=== PATIENT | female | born 1965 ===

== ENCOUNTER 2017-10-10 09:12 | Observation (INO) | payer OTHER ==
[2017-10-10] MEDS ORDERED: Iohexol 240 (50 ml) PO ONE (09:52)
[2017-10-10] MEDS ORDERED: Sodium Chloride 0.9% 1,000 ML IV STA (09:56)
[2017-10-10] MEDS ORDERED: Iohexol 240 (50 ml) ONE (10:01)
[2017-10-10 10:23] LABS: BASO # 0.1 K/uL (0.0-0.2); BASO % 1.2 % (0.0-2.0); EOS # 0.1 K/uL (0.0-0.7); EOS % 1.6 % (0.0-4.0); HEMOGLOBIN 12.7 g/dL (12.0-16.0); LYMPH # 2.3 K/uL (1.0-4.3); LYMPH % 34.7 % (20.0-40.0); MEAN CELL VOLUME 91.9 fl (81.0-99.0); MEAN CORPUSCULAR HEMOGLOBIN 31.5 pg (27.0-31.0); MEAN CORPUSCULAR HGB CONC 34.3 g/dL (33.0-37.0); MEAN PLATELET VOLUME 7.7 fl (7.2-11.7); MONO # 0.4 K/uL (0.0-0.8); MONO % 5.5 % (0.0-10.0); NEUT # 3.7 K/uL (1.8-7.0); NRBC % 0.1 % (0.0-0.0); RBC 4.02 Mil/uL (3.80-5.20); RED CELL DISTRIBUTION WIDTH 14.2 % (11.5-14.5); WHITE BLOOD COUNT 6.5 K/uL (4.8-10.8)
[2017-10-10 10:41] LABS: ALB/GLOB RATIO 1.4 (1.0-2.1); ALBUMIN 4.4 g/dL (3.5-5.0); ALT/SGPT 44 U/L (9-52); AST/SGOT 37 U/L (14-36); BLOOD UREA NITROGEN 16 mg/dl (7-17); CALCIUM 10.7 mg/dL (8.4-10.2); GFR AFRICAN-AMERICAN > 60; GFR NON-AFRICAN AMERICAN > 60; LIPASE 248 U/L (23-300)
--- NOTE | 2017-10-10 11:04 | ED PDOC ---
HPI: Abdomen Time Seen by Provider: 10/10/17 09:34 Chief Complaint (Nursing): Abdominal Pain Chief Complaint (Provider): Abdominal pain History Per: Patient History/Exam Limitations: no limitations Onset/Duration Of Symptoms: Days (x2) Current Symptoms Are (Timing): Still Present Location Of Pain/Discomfort: RLQ, Epigastric Quality Of Discomfort: "Pain" Associated Symptoms: Nausea, Loss Of Appetite, Constipation. denies: Fever, Vomiting, Diarrhea, Urinary Symptoms Exacerbating Factors: Food (eating or drinking) Additional Complaint(s): Cintia Coronel is a 51 year old female, with a past medical history of gastritis, who presents to the emergency department complaining of a constant right sided abdominal pain associated with decreased appetite and nausea onset for x2 days. Patient also reports constipation ongoing for x3 days. Patient states pain was initially epigastric but has slowly moved to her right lower side, and is worst with drinking or eating. She denies any fever, chills, urinary symptoms, vomiting or diarrhea. No further medical complaints. PMD: None provided. Past Medical History Reviewed: Historical Data, Nursing Documentation, Vital Signs Vital Signs: Last Vital Signs Temp 98.5 F 10/10/17 09:23 Pulse 78 10/10/17 09:23 Resp 20 10/10/17 09:23 BP 127/77 10/10/17 09:23 Pulse Ox 98 10/10/17 14:41 - Medical History PMH: Gastritis, Gall Bladder Disease - Surgical History Surgical History: - Family History Family History: States: Unknown Family Hx - Social History Current smoker - smoking cessation education provided: No Alcohol: None Drugs: Denies - Immunization History Hx Tetanus Toxoid Vaccination: No Hx Influenza Vaccination: No Hx Pneumococcal Vaccination: No - Home Medications Home Medications: Ambulatory Orders Medication Instructions Recorded No Known Home Med 10/10/17 - Allergies Allergies/Adverse Reactions: Allergies Allergy/AdvReac Type Severity Reaction Status Date / Time No Known Allergies Allergy Verified 06/19/17 15:46 Review of Systems ROS Statement: Except As Marked, All Systems Reviewed And Found Negative Constitutional: Negative for: Fever, Chills Gastrointestinal: Positive for: Nausea, Abdominal Pain (right sided), Constipation, Other (decreased appetite). Negative for: Vomiting, Diarrhea Genitourinary Female: Negative for: Dysuria, Frequency, Incontinence Physical Exam - Reviewed Nursing Documentation Reviewed: Yes Vital Signs Reviewed: Yes - Physical Exam Appears: Positive for: Non-toxic, No Acute Distress Head Exam: Positive for: ATRAUMATIC, NORMAL INSPECTION, NORMOCEPHALIC Skin: Positive for: Normal Color, Warm, Dry Eye Exam: Positive for: Normal appearance, EOMI, PERRL ENT: Positive for: Normal ENT Inspection Neck: Positive for: Painless ROM, Supple Cardiovascular/Chest: Positive for: Regular Rate, Rhythm. Negative for: Murmur Respiratory: Positive for: Normal Breath Sounds. Negative for: Respiratory Distress Gastrointestinal/Abdominal: Positive for: Tenderness (significant RLQ tenderness , mild in epigastric area.) Back: Positive for: Normal Inspection. Negative for: L CVA Tenderness, R CVA Tenderness, Vertebral Tenderness Extremity: Positive for: Normal ROM. Negative for: Tenderness, Deformity, Swelling Neurologic/Psych: Positive for: Alert, Oriented (x3). Negative for: Motor/ Sensory Deficits - Laboratory Results Result Diagrams: 10/10/17 10:18 10/10/17 10:18 - ECG O2 Sat by Pulse Oximetry: 98 (RA) Pulse Ox Interpretation: Normal Medical Decision Making Medical Decision Making: Initial Impression: abdominal pain. Differential includes but not limited to acute appendicitis, acute cholecystitis, and UTI Initial Plan: --Abd pelvis PO & IV contrast [CT] --CMP --Lipase --Urine dipstick --Urine --Dilaudid 0.5 mg IVP --Omnipaque 240 50 ml PO --Sodium Chloride 1,000 ml IV 1,000 mls/hr --Zofran Inj 4 mg IV --Urine culture --reevaluation 13:57 Abdomen & Pelvis CT FINDINGS: LOWER THORAX: Lingular calcified granuloma. Heart size normal. LIVER: Mild hepatic steatosis. No gross lesion or ductal dilatation. GALLBLADDER AND BILE DUCTS: Unremarkable. PANCREAS: Unremarkable. No gross lesion or ductal dilatation. SPLEEN: Unremarkable. ADRENALS: Unremarkable. No mass. KIDNEYS AND URETERS: Unremarkable. No hydronephrosis. No solid mass. VASCULATURE: Unremarkable. No aortic aneurysm. BOWEL: Unremarkable. No obstruction. No gross mural thickening. APPENDIX: Thick-walled appendiceal tip in the posterior abdominal midline without significant periappendiceal inflammatory change. Remainder of appendix is normal in caliber and fills with enteric contrast. PERITONEUM: Small fat containing umbilical hernia. No free fluid. No free air. LYMPH NODES: Unremarkable. No enlarged lymph nodes. BLADDER: Markedly distended. REPRODUCTIVE: Unremarkable. BONES: No acute fracture. OTHER FINDINGS: None. IMPRESSION: Thick-walled appendiceal tip without significant periappendiceal inflammatory change. Tip appendicitis cannot be excluded. Clinical correlation is recommend. --Discussed CT findings with Dr. Matthews, surgeon telecom sales consultant. Patient will be seen by surgical specialist in ER and will discuss case with Dr. Matthews for further management 15:25 --Dr. Matthews recommends admitting the patient for observation of hospitalist. --As per Dr. Matthews, patient will be admitted to hospitalistDr. Andrews. Scribe Attestation: Documented by Jayesh Lentz, acting as a scribe for Soy Middleton MD Provider Scribe Attestation: All medical record entries made by the Scribe were at my direction and personally dictated by me. I have reviewed the chart and agree that the record accurately reflects my personal performance of the history, physical exam, medical decision making, and the department course for this patient. I have also personally directed, reviewed, and agree with the discharge instructions and disposition. Disposition - Disposition Forms: [employer] (Andorran)
[2017-10-10] MEDS ORDERED: Sodium Chloride 0.9% 50 ML IV ONE (12:39)
[2017-10-10] MEDS ORDERED: Iohexol 300 100 ML IJ ONE (12:39)
--- NOTE | 2017-10-10 13:59 | CT ---
PROCEDURE: CT Abdomen and Pelvis with contrast HISTORY: RLQ pain COMPARISON: None. TECHNIQUE: Contrast dose: 90 mL Omnipaque 300 Radiation dose: Total exam DLP = 674.4 mGy-cm. This CT exam was performed using one or more of the following dose reduction techniques: Automated exposure control, adjustment of the mA and/or kV according to patient size, and/or use of iterative reconstruction technique. FINDINGS: LOWER THORAX: Lingular calcified granuloma. Heart size normal. LIVER: Mild hepatic steatosis. No gross lesion or ductal dilatation. GALLBLADDER AND BILE DUCTS: Unremarkable. PANCREAS: Unremarkable. No gross lesion or ductal dilatation. SPLEEN: Unremarkable. ADRENALS: Unremarkable. No mass. KIDNEYS AND URETERS: Unremarkable. No hydronephrosis. No solid mass. VASCULATURE: Unremarkable. No aortic aneurysm. BOWEL: Unremarkable. No obstruction. No gross mural thickening. APPENDIX: Thick-walled appendiceal tip in the posterior abdominal midline without significant periappendiceal inflammatory change. Remainder of appendix is normal in caliber and fills with enteric contrast. PERITONEUM: Small fat containing umbilical hernia. No free fluid. No free air. LYMPH NODES: Unremarkable. No enlarged lymph nodes. BLADDER: Markedly distended. REPRODUCTIVE: Unremarkable. BONES: No acute fracture. OTHER FINDINGS: None. IMPRESSION: Thick-walled appendiceal tip without significant periappendiceal inflammatory change. Tip appendicitis cannot be excluded. Clinical correlation is recommend. Findings conveyed to Dr. Middleton by Dr. Gutierrez at 1:55 p.m. on 10/10/2017.
--- NOTE | 2017-10-10 17:42 | CP.PCM.CON ---
History of Present Illness - History of Present Illness History of Present Illness: General Surgery: Dr Matthews Pt is a 51F with history of gastritis who presents to ED for RLQ pain x 2 days. Pt reports pain started monday afternoon and has been persistent 7/10 in RLQ. Now 2/10 after medication. Pt reports single episode of yellow emesis, however 10-12 episodes of watery diarrhea. Pt reports cramping sensation throughout entire abdomen. Denies fevers, chills, sob or chest pain. also complains of epigastric pain. Has been able to tolerate diet though she has not eaten much beyond lemon juice that she thought would help. CT reviewed with attending: there is contrast and air in appendix with no surrounding inflammation. PMH: gastritis PSH: Review of Systems - Review of Systems All systems: reviewed and no additional remarkable complaints except (as per hpi ) Past Patient History - Infectious Disease Hx of Infectious Diseases: None - Past Social History Alcohol: None Drugs: Denies - GASTROINTESTINAL Hx Gall Bladder Disease: Yes Hx Gastritis: Yes - PSYCHIATRIC Hx Substance Use: No - SURGICAL HISTORY Hx Surgeries: Yes Hx Section: Yes (x1) - ANESTHESIA Hx Anesthesia: Yes Hx Anesthesia Reactions: No Hx Malignant Hyperthermia: No Meds Allergies/Adverse Reactions: Allergies Allergy/AdvReac Type Severity Reaction Status Date / Time No Known Allergies Allergy Verified 06/19/17 15:46 Physical Exam - Constitutional Appears: Non-toxic, No Acute Distress - Head Exam Head Exam: NORMAL INSPECTION - ENT Exam ENT Exam: Mucous Membranes Moist - Respiratory Exam Respiratory Exam: absent: Accessory Muscle Use, Respiratory Distress - Cardiovascular Exam Cardiovascular Exam: REGULAR RHYTHM. absent: Tachycardia - GI/Abdominal Exam GI & Abdominal Exam: Soft, Tenderness (RLQ and LLQ and epigastric but minimal). absent: Distended, Firm, Guarding, Hernia, Rigid - Neurological Exam Neurological exam: Alert, Oriented x3 - Psychiatric Exam Psychiatric exam: Normal Affect, Normal Mood Results - Vital Signs Recent Vital Signs: Last Vital Signs Temp 97.9 F 10/10/17 17:20 Pulse 61 10/10/17 17:20 Resp 18 10/10/17 17:20 BP 131/74 10/10/17 17:20 Pulse Ox 100 10/10/17 17:20 - Labs Result Diagrams: 10/10/17 10:18 10/10/17 10:18 Labs: Laboratory Results - last 24 hr 10/10/17 10/10/17 10:18 10:18 WBC 6.5 RBC 4.02 Hgb 12.7 Hct 37.0 MCV 91.9 MCH 31.5 H MCHC 34.3 RDW 14.2 Plt Count 247 MPV 7.7 Neut % (Auto) 57.0 Lymph % (Auto) 34.7 [place] % (Auto) 5.5 Eos % (Auto) 1.6 Baso % (Auto) 1.2 Neut # (Auto) 3.7 Lymph # (Auto) 2.3 [place] # (Auto) 0.4 Eos # (Auto) 0.1 Baso # (Auto) 0.1 Sodium 144 Potassium 3.9 Chloride 104 Carbon Dioxide 29 Anion Gap 15 BUN 16 Creatinine 0.7 Est GFR ( Amer) > 60 Est GFR (Non-Af Amer) > 60 Random Glucose 136 H Calcium 10.7 H Total Bilirubin 0.3 AST 37 H ALT 44 Alkaline Phosphatase 82 Total Protein 7.7 Albumin 4.4 Globulin 3.3 Albumin/Globulin Ratio 1.4 Lipase 248 Assessment & Plan - Assessment and Plan (Free Text) Assessment: 51F with abdominal pain; r/o appendicits Plan: unlikely appendicitis. likely gastroenteritis d/w attending; recommended d/c with return to ED if worsens vs admission and observation. Pt elected for observation monitor for leukocytosis, fevers, or worsening pain please call surgical team if pt condition changes d/w Dr Byron Carr, PGY3
[2017-10-10] MEDS: Sodium Chloride 0.9% 1,000 ML IV SCH (18:16)
[2017-10-10 18:38] LABS: SQUAMOUS EPITHIAL 15 /hpf (0-5); URINE BACTERIA RARE (<OCC); URINE BILIRUBIN NEGATIVE (NEGATIVE); URINE BLOOD SMALL (NEGATIVE); URINE CLARITY CLOUDY (Clear); URINE COLOR YELLOW (YELLOW); URINE GLUCOSE (UA) NEG (Normal); URINE LEUKOCYTE ESTERASE LARGE Leu/uL (Negative); URINE NITRATE NEGATIVE (NEGATIVE); URINE PROTEIN NEGATIVE (NEGATIVE); URINE UROBILINOGEN 0.2-1.0 mg/dL (0.2-1.0)
--- NOTE | 2017-10-10 20:11 | CP.PCM.HP ---
History of Present Illness - History of Present Illness History of Present Illness: 51 yo female with no significant PMH came in complaining of RLQ and epigastric pain since 2 days ago associated with multiple bouts of diarrhea. Denied fever or chills. Present on Admission - Present on Admission Any Indicators Present on Admission: No History of DVT/PE: No History of Uncontrolled Diabetes: No Urinary Catheter: No Decubitus Ulcer Present: No Review of Systems - Review of Systems All systems: reviewed and no additional remarkable complaints except (aside from those mentioned above 12 point system review were negative by me) Past Patient History - Infectious Disease Hx of Infectious Diseases: None - Tetanus Immunizations Tetanus Immunization: Unknown - Past Medical History & Family History Past Medical History?: Yes - Past Social History Smoking Status: Never Smoked Alcohol: None Drugs: Denies - CARDIAC Hx Cardiac Disorders: No - PULMONARY Hx Respiratory Disorders: No - NEUROLOGICAL Hx Neurological Disorder: No - HEENT Hx HEENT Problems: No - RENAL Hx Chronic Kidney Disease: No - ENDOCRINE/METABOLIC Hx Endocrine Disorders: No - HEMATOLOGICAL/ONCOLOGICAL Hx Blood Disorders: No - INTEGUMENTARY Hx Dermatological Problems: No - MUSCULOSKELETAL/RHEUMATOLOGICAL Hx Musculoskeletal Disorders: No - GASTROINTESTINAL Hx Gall Bladder Disease: Yes Hx Gastritis: Yes - GENITOURINARY/GYNECOLOGICAL Hx Genitourinary Disorders: No - PSYCHIATRIC Hx Psychophysiologic Disorder: No - SURGICAL HISTORY Hx Surgeries: Yes Hx Section: Yes (x1) - ANESTHESIA Hx Anesthesia: Yes Hx Anesthesia Reactions: No Hx Malignant Hyperthermia: No Meds Allergies/Adverse Reactions: Allergies Allergy/AdvReac Type Severity Reaction Status Date / Time No Known Allergies Allergy Verified 06/19/17 15:46 Physical Exam - Constitutional Appears: No Acute Distress - Head Exam Head Exam: ATRAUMATIC - Eye Exam Eye Exam: absent: Scleral icterus - ENT Exam ENT Exam: Mucous Membranes Moist - Neck Exam Neck exam: Negative for: Meningismus - Respiratory Exam Respiratory Exam: absent: Rhonchi, Wheezes, Respiratory Distress - Cardiovascular Exam Cardiovascular Exam: REGULAR RHYTHM, +S1, +S2 - GI/Abdominal Exam GI & Abdominal Exam: Soft, Tenderness (tenderness on RLQ) - Rectal Exam Rectal Exam: Deferred - Extremities Exam Extremities exam: Negative for: calf tenderness - Back Exam Back exam: absent: tenderness - Neurological Exam Neurological exam: Alert, Oriented x3 - Psychiatric Exam Psychiatric exam: Normal Affect - Skin Skin Exam: Dry, Intact Results - Vital Signs Recent Vital Signs: Last Vital Signs Temp 98.2 F 10/10/17 19:00 Pulse 59 L 10/10/17 19:00 Resp 18 10/10/17 19:00 BP 116/72 10/10/17 19:00 Pulse Ox 100 10/10/17 17:20 - Labs Result Diagrams: 10/10/17 10:18 10/10/17 10:18 Labs: Laboratory Results - last 24 hr 10/10/17 10/10/17 10/10/17 10:18 10:18 17:14 WBC 6.5 RBC 4.02 Hgb 12.7 Hct 37.0 MCV 91.9 MCH 31.5 H MCHC 34.3 RDW 14.2 Plt Count 247 MPV 7.7 Neut % (Auto) 57.0 Lymph % (Auto) 34.7 [place] % (Auto) 5.5 Eos % (Auto) 1.6 Baso % (Auto) 1.2 Neut # (Auto) 3.7 Lymph # (Auto) 2.3 [place] # (Auto) 0.4 Eos # (Auto) 0.1 Baso # (Auto) 0.1 Sodium 144 Potassium 3.9 Chloride 104 Carbon Dioxide 29 Anion Gap 15 BUN 16 Creatinine 0.7 Est GFR ( Amer) > 60 Est GFR (Non-Af Amer) > 60 Random Glucose 136 H Calcium 10.7 H Total Bilirubin 0.3 AST 37 H ALT 44 Alkaline Phosphatase 82 Total Protein 7.7 Albumin 4.4 Globulin 3.3 Albumin/Globulin Ratio 1.4 Lipase 248 Urine Color Yellow Urine Clarity Cloudy Urine pH 6.0 Ur Specific [place] 1.012 Urine Protein Negative Urine Glucose (UA) Neg Urine Ketones Negative Urine Blood Small Urine Nitrate Negative Urine Bilirubin Negative Urine Urobilinogen 0.2-1.0 Ur Leukocyte Esterase Large Urine RBC (Auto) 12 H Urine Microscopic WBC 5 Ur Squamous Epith Cells 15 H Urine Bacteria Rare Assessment & Plan - Assessment and Plan (Free Text) Assessment: 51 yo female with no significant PMH came in complaining of RLQ and epigastric pain since 2 days ago associated with multiple bouts of diarrhea. Denied fever or chills. 1. Acute Appendicitis patient denied history of cardiac symptom: no SOB, no chest pain able to do his ADL patient medically cleared for surgery Zosyn 3.375 gm IV q 6hrs
[2017-10-11 00:19] VITALS: O2SAT 98
[2017-10-11] MEDS: Sodium Chloride 0.9% 1,000 ML IV SCH ×3 (03:00→10:02)
[2017-10-11 06:38] LABS: BASO % 0.6 % (0.0-2.0); EOS # 0.1 K/uL (0.0-0.7); HEMOGLOBIN 12.1 g/dL (12.0-16.0); LYMPH # 2.7 K/uL (1.0-4.3); LYMPH % 43.5 % (20.0-40.0); MEAN CORPUSCULAR HEMOGLOBIN 31.1 pg (27.0-31.0); MEAN CORPUSCULAR HGB CONC 33.4 g/dL (33.0-37.0); MEAN PLATELET VOLUME 8.1 fl (7.2-11.7); MONO # 0.5 K/uL (0.0-0.8); MONO % 7.6 % (0.0-10.0); NEUT # 2.8 K/uL (1.8-7.0); NEUT % 46.3 % (50.0-75.0); NRBC % 0.1 % (0.0-0.0); RBC 3.9 Mil/uL (3.80-5.20); RED CELL DISTRIBUTION WIDTH 14.6 % (11.5-14.5); WHITE BLOOD COUNT 6.1 K/uL (4.8-10.8)
[2017-10-11 06:50] LABS: BLOOD UREA NITROGEN 16 mg/dl (7-17); CALCIUM 10.3 mg/dL (8.4-10.2); GFR AFRICAN-AMERICAN > 60; GFR NON-AFRICAN AMERICAN > 60
[2017-10-11 07:45] VITALS: BP 110/74; PULSE 68; RESP 19; TEMP 97.7
--- NOTE | 2017-10-11 09:32 | CP.PCM.PN ---
Subjective - Date & Time of Evaluation Date of Evaluation: 10/11/17 Time of Evaluation: 09:30 - Subjective Subjective: General Surgery Progress Note - Dr. Matthews 51 y/o female seen and examined at bedside. Says she feels overall a bit better today. Reports that she ate dinner last night and had mild lower abdominal pain afterwards. She says the pain medication helped to alleviate her discomfort. Denies N/V. States she has very little pain at rest but it is tender to touch at the lower right abdomen. Admits to normal bowel movements; denies D/C. States she has not had anything to eat or drink today as she is worried it will cause an upset stomach. Objective - Vital Signs/Intake and Output Vital Signs (last 24 hours): Temp Pulse Resp BP Pulse Ox 97.7 F 68 19 110/74 98 10/11/17 07:44 10/11/17 07:44 10/11/17 07:44 10/11/17 07:44 10/11/17 07:44 - Medications Medications: Current Medications Hydromorphone HCl (Dilaudid) 0.5 mg IVP Q3H PRN PRN Reason: Pain, Mild (1-3) Last Admin: 10/10/17 20:12 Dose: 0.5 mg Sodium Chloride (Sodium Chloride 0.9%) 1,000 mls @ 120 mls/hr IV .Q8H20M QUIN Stop: 10/11/17 17:44 Last Admin: 10/11/17 05:14 Dose: 120 mls/hr Pantoprazole Sodium (Protonix Inj) 40 mg IVP DAILY QUIN - Labs Labs: 10/11/17 05:25 10/11/17 05:25 - Constitutional Appears: Well, Non-toxic, No Acute Distress - GI/Abdominal Exam GI & Abdominal Exam: Soft, Tenderness, Normal Bowel Sounds. absent: Distended Additional comments: mild RLQ tenderness on deep palpation - Neurological Exam Neurological Exam: Alert, Awake, Oriented x3 - Psychiatric Exam Psychiatric exam: Normal Affect, Normal Mood - Skin Skin Exam: Dry, Intact, Normal Color Assessment and Plan - Assessment and Plan (Free Text) Assessment: 51 y/o female with mild lower abdominal pain, likely secondary to gastroenteritis Plan: -pt remains afebrile with absent leukocytosis -explained to pt that symptoms are more consistent with gastroenteritis than appendicitis -continue IV fluids -pt stable for discharge -encouraged pt to return if symptoms worsen -discussed with attending Dr. Matthews
--- NOTE | 2017-10-11 11:24 | CP.PCM.DIS ---
Provider - Provider Date of Admission: 10/10/17 15:32 Attending physician: Festus Andrews MD Primary care physician: None. Consults: General Surgery: Chucky Perez Time Spent in preparation of Discharge (in minutes): 30 Diagnosis - Discharge Diagnosis (1) Chronic gastritis without bleeding Status: Acute Comment: -Pt stable, pain relieved, will f/u with Dr Pate on 10/27/17 at [facility]. -Pantoprazole 40mg PO daily prescribed. Hospital Course - Lab Results Lab Results: Most Recent Lab Values WBC 6.1 K/uL (4.8-10.8) 10/11/17 05:25 RBC 3.90 Mil/uL (3.80-5.20) 10/11/17 05:25 Hgb 12.1 g/dL (12.0-16.0) 10/11/17 05:25 Hct 36.3 % (34.0-47.0) 10/11/17 05:25 MCV 93.0 fl (81.0-99.0) 10/11/17 05:25 MCH 31.1 pg (27.0-31.0) H 10/11/17 05:25 MCHC 33.4 g/dL (33.0-37.0) 10/11/17 05:25 RDW 14.6 % (11.5-14.5) H 10/11/17 05:25 Plt Count 235 K/uL (130-400) 10/11/17 05:25 MPV 8.1 fl (7.2-11.7) 10/11/17 05:25 Neut % (Auto) 46.3 % (50.0-75.0) L 10/11/17 05:25 Lymph % (Auto) 43.5 % (20.0-40.0) H 10/11/17 05:25 [place] % (Auto) 7.6 % (0.0-10.0) 10/11/17 05:25 Eos % (Auto) 2.0 % (0.0-4.0) 10/11/17 05:25 Baso % (Auto) 0.6 % (0.0-2.0) 10/11/17 05:25 Neut # (Auto) 2.8 K/uL (1.8-7.0) 10/11/17 05:25 Lymph # (Auto) 2.7 K/uL (1.0-4.3) 10/11/17 05:25 [place]ha # (Auto) 0.5 K/uL (0.0-0.8) 10/11/17 05:25 Eos # (Auto) 0.1 K/uL (0.0-0.7) 10/11/17 05:25 Baso # (Auto) 0.0 K/uL (0.0-0.2) 10/11/17 05:25 Sodium 143 mmol/l (132-148) 10/11/17 05:25 Potassium 4.3 MMOL/L (3.6-5.0) 10/11/17 05:25 Chloride 103 mmol/L (98-107) 10/11/17 05:25 Carbon Dioxide 30 mmol/L (22-30) 10/11/17 05:25 Anion Gap 14 (10-20) 10/11/17 05:25 BUN 16 mg/dl (7-17) 10/11/17 05:25 Creatinine 0.6 mg/dl (0.7-1.2) L 10/11/17 05:25 Est GFR ( Amer) > 60 10/11/17 05:25 Est GFR (Non-Af Amer) > 60 10/11/17 05:25 Random Glucose 94 mg/dL (65-105) 10/11/17 05:25 Calcium 10.3 mg/dL (8.4-10.2) H 10/11/17 05:25 Total Bilirubin 0.3 mg/dl (0.2-1.3) 10/10/17 10:18 AST 37 U/L (14-36) H 10/10/17 10:18 ALT 44 U/L (9-52) 10/10/17 10:18 Alkaline Phosphatase 82 U/L (38-126) 10/10/17 10:18 Total Protein 7.7 G/DL (6.3-8.2) 10/10/17 10:18 Albumin 4.4 g/dL (3.5-5.0) 10/10/17 10:18 Globulin 3.3 gm/dL (2.2-3.9) 10/10/17 10:18 Albumin/Globulin Ratio 1.4 (1.0-2.1) 10/10/17 10:18 Lipase 248 U/L (23-300) 10/10/17 10:18 Urine Color Yellow (YELLOW) 10/10/17 17:14 Urine Clarity Cloudy (Clear) 10/10/17 17:14 Urine pH 6.0 (5.0-8.0) 10/10/17 17:14 Ur Specific [place] 1.012 (1.003-1.030) 10/10/17 17:14 Urine Protein Negative mg/dL (NEGATIVE) 10/10/17 17:14 Urine Glucose (UA) Neg mg/dL (Normal) 10/10/17 17:14 Urine Ketones Negative mg/dL (NEGATIVE) 10/10/17 17:14 Urine Blood Small (NEGATIVE) 10/10/17 17:14 Urine Nitrate Negative (NEGATIVE) 10/10/17 17:14 Urine Bilirubin Negative (NEGATIVE) 10/10/17 17:14 Urine Urobilinogen 0.2-1.0 mg/dL (0.2-1.0) 10/10/17 17:14 Ur Leukocyte Esterase Large [place]/uL (Negative) 10/10/17 17:14 Urine RBC (Auto) 12 /hpf (0-3) H 10/10/17 17:14 Urine Microscopic WBC 5 /hpf (0-5) 10/10/17 17:14 Ur Squamous Epith Cells 15 /hpf (0-5) H 10/10/17 17:14 Urine Bacteria Rare (<OCC) 10/10/17 17:14 - Hospital Course Hospital Course: 51 y/o f was admitted for evaluation and management of severe epigastric and RLQ pain. - Pt reports symptomatology has been present for ~ 5 years. Pain is mainly in epigastric area, radiates to RLQ and RLQ, can reach 9/10 intesnsity, exacerbated with fatty food. No nausea or vomiting reported. Diarrhea was only 1 episode. Pt was previously evaluated by a PMD in [place]. Pt recently moved to [place]. Pt has been taking PO Omeprazole for many years, last time taken was 4 months ago. Omeprazole was able to alleviate symptoms for a period of time; however, pain is not longer alleviated with Omeprazole. - CT scan of abdomen and pelvis showed thick walled appendiceal tip in the posterior abdominal midline without significant char-appendiceal inflammatory change. Remainder of appendix was normal in caliber and fills with enteric contrast. Gallbladder and bile ducts were unremarkable. - Gen Surgery consulted and did not recommend any procedure. Pt stable, afebrile , tolerating PO, able to ambulate, is discharged home with a Rx for Pantoprazole. F/u with Dr Pate on 10/27/17 at 08:40. Discharge Exam - Head Exam Head Exam: ATRAUMATIC - Eye Exam Eye Exam: EOMI, Normal appearance - ENT Exam ENT Exam: Mucous Membranes Moist, Normal Oropharynx - Neck Exam Neck exam: Full Rom - Respiratory Exam Respiratory Exam: Clear to PA & Lateral, NORMAL BREATHING PATTERN, UNREMARKABLE - Cardiovascular Exam Cardiovascular Exam: REGULAR RHYTHM, +S1, +S2 - GI/Abdominal Exam GI & Abdominal Exam: Normal Bowel Sounds, Soft, Tenderness (on epigastric and RUQ areas. ). absent: Distended, Guarding, Rebound, Rigid - Neurological Exam Neurological exam: Alert, Oriented x3 - Psychiatric Exam Psychiatric exam: Normal Mood Discharge Plan - Discharge Medications Prescriptions: Pantoprazole Sodium [Protonix] 40 mg PO DAILY 30 Days #30 ect - Follow Up Plan Condition: STABLE Disposition: HOME/ ROUTINE Instructions: Gastritis (DC), Acute Abdominal Pain (DC) Additional Instructions: - Please, f/u with Dr Pate on 11/14/17 at 8:40am, please take ID and [facility] registration proof for appointment. - Por favor, acuda a [place] el a las 8:40 am. Por favor llevar gaxiola identification y copia or registro de [facility]. - Siga deirdre dieta blanda, saludable, evite las grasas y frituras, no cafe, no chocolate y no comidas acidas en el desayuno tatyana [place], papaya o ya. Referrals: [facility] [Outside] Chucky Matthews MD [Staff Provider] -
== END 2017-10-11 11:33 | disposition home or self-care (01) ==
LOC: H.ER 09:12 → H.ERHOLD 15:32 → H.MEDSURG1 18:42
DX: K29.50 Unspecified chronic gastritis without bleeding (principal); K59.00 Constipation, unspecified
CPT/HCPCS: 36415; 74177; 80048; 80053; 81003; 81025; 83690; 85025; 87086; 96374; 99285; C9113; G0378; J1170; J2405; J7040; Q9966; Q9967

== ENCOUNTER 2017-10-25 12:47 | Emergency (ER) | payer OTHER ==
[2017-10-25 13:02] VITALS: BP 134/71; PULSE 75; RESP 16; TEMP 98.5; O2SAT 100
--- NOTE | 2017-10-25 13:24 | ED PDOC ---
HPI: General Adult Time Seen by Provider: 10/25/17 13:05 Chief Complaint (Nursing): ENT Problem Chief Complaint (Provider): Right Ear Pain History Per: Patient History/Exam Limitations: no limitations Onset/Duration Of Symptoms: Days (x 2 weeks) Current Symptoms Are (Timing): Still Present Additional Complaint(s): Cintia is a 52 y/o female with no past medical history who presents to the ED complaining of right ear pain for the past two weeks with associated nasal and sinus congestion. Patient also complains of dry skin on her right hand ongoing for several weeks. Patient denies any fever or chills. No hearing loss, no associated sore throat. PMD: None Past Medical History Reviewed: Historical Data, Nursing Documentation, Vital Signs Vital Signs: Last Vital Signs Temp 98.5 F 10/25/17 12:58 Pulse 75 10/25/17 12:58 Resp 16 10/25/17 12:58 BP 134/71 10/25/17 12:58 Pulse Ox 100 10/25/17 13:30 - Medical History PMH: Gastritis - Surgical History Surgical History: - Family History Family History: States: No Known Family Hx - Living Arrangements Living Arrangements: With Family - Social History Current smoker - smoking cessation education provided: No Alcohol: None Drugs: Denies - Home Medications Home Medications: Ambulatory Orders Medication Instructions Recorded Pantoprazole Sodium [Protonix] 40 mg PO DAILY 30 Days #30 ect 10/11/17 Ammonium Lactate 12% [Lac-Hydrin] 1 appful TP DAILY #1 tube 10/25/17 Amoxicillin/Clavulanate [Augmentin 1 tab PO BID #14 tab 10/25/17 875 MG-125 MG] Fluticasone Nasal [Flonase] 1 spray NS DAILY #1 bottle 10/25/17 Ibuprofen [Motrin] 600 mg PO Q6 PRN #20 tab 10/25/17 - Allergies Allergies/Adverse Reactions: Allergies Allergy/AdvReac Type Severity Reaction Status Date / Time No Known Allergies Allergy Verified 06/19/17 15:46 Review of Systems ROS Statement: Except As Marked, All Systems Reviewed And Found Negative Constitutional: Negative for: Fever, Chills ENT: Positive for: Ear Pain (right), Nose Congestion (and sinus congestion) Respiratory: Negative for: Cough Gastrointestinal: Negative for: Vomiting Skin: Positive for: Other (dry skin on right hand ongoing for weeks) Physical Exam - Reviewed Nursing Documentation Reviewed: Yes Vital Signs Reviewed: Yes - Physical Exam Appears: Positive for: Well, Non-toxic, No Acute Distress Head Exam: Positive for: ATRAUMATIC Skin: Positive for: Dry (severe dry skin noted to right dorsal hand, no acute infection noted) ENT: Positive for: TM Is/Are (Right TM: bulging with obscured landmarks, (-) perforation, (-) rupture, right canal is clear, left ear wnl), Nasal Congestion (and sinus), Other. Negative for: Pharyngeal Erythema, Tonsillar Swelling Neck: Positive for: Normal, Painless ROM Cardiovascular/Chest: Positive for: Regular Rate, Rhythm Respiratory: Positive for: Normal Breath Sounds Neurologic/Psych: Positive for: Alert, Oriented. Negative for: Motor/Sensory Deficits - ECG O2 Sat by Pulse Oximetry: 100 (RA) Pulse Ox Interpretation: Normal Medical Decision Making Medical Decision Making: Time: 13:20 Initial Impression: 52 y/o female with sinusitis and right otitis media Plan: Rx augmentin, flonase and motrin. Rx lac hydrin lotion also given for dry skin on hand. Patient was referred to clinic for follow up. Scribe Attestation: Documented by Fernando Contreras, acting as a scribe for Darlene Brito PA-C. Provider Scribe Attestation: All medical record entries made by the Scribe were at my direction and personally dictated by me. I have reviewed the chart and agree that the record accurately reflects my personal performance of the history, physical exam, medical decision making, and the department course for this patient. I have also personally directed, reviewed, and agree with the discharge instructions and disposition. Disposition - Clinical Impression Clinical Impression: Otitis media, Sinusitis, Dry skin dermatitis - Patient ED Disposition Is Patient to be Admitted: No Counseled Patient/Family Regarding: Studies Performed, Diagnosis, Need For Followup, Rx Given - Disposition Referrals: [facility] [place] [Outside] Disposition: Routine/Home Disposition Time: 13:36 Condition: STABLE Additional Instructions: Take meds as directed. Follow up with clinic. Prescriptions: Ammonium Lactate 12% [Lac-Hydrin] 1 appful TP DAILY #1 tube Amoxicillin/Clavulanate [Augmentin 875 MG-125 MG] 1 tab PO BID #14 tab Fluticasone Nasal [Flonase] 1 spray NS DAILY #1 bottle Ibuprofen [Motrin] 600 mg PO Q6 PRN #20 tab PRN Reason: Pain, Moderate (4-7) Instructions: Ear Infections (Otitis Media), Sinusitis, Adult (DC), Dermatitis Forms: [facility] (Pashto) Print Language: CHINESE
== END 2017-10-25 15:19 | disposition home or self-care (01) ==
LOC: H.ER 12:47
DX: H66.91 Otitis media, unspecified, right ear (principal); J32.9 Chronic sinusitis, unspecified; L85.3 Xerosis cutis